=== PATIENT | male | born 1960 | race Caucasian/White ===

== ENCOUNTER 2017-04-26 13:04 | Emergency (ER) | payer BC ==
[~2017-04-26] VITALS: Ht 172.7 cm; Wt 104.5 kg
[~2017-04-26 13:04] MED LIST: AVELOX 400MG T400 MG PO; DIOVAN 80MG80 MG PO; DIOVAN320 MG PO; TOPROL XL100 MG PO; TOPROL XL200 MG PO; ZOCOR 40MG40 MG PO; ZOCOR5 MG PO; ZYLOPRIM 300MG300 MG PO
[2017-04-26 13:07] VITALS: TEMP 98.1
[2017-04-26 13:45] LABS: BASO # 0.1 (0.0-0.2); BASO % 0.9 % (0.0-2.0); EOS # 0.2 (0.0-0.7); EOS % 1.9 % (0-4.0); GRAN # 5.2 (1.4-6.5); GRAN % 51.2 % (42.2-75.2); MEAN CELL VOLUME 90 fl (80.0-100.0); MEAN CORPUSCULAR HGB CONC 35 g/dl (33.0-37.0); MEAN PLATELET VOLUME 9.3 fl (7.4-10.4); MONO # 0.5 (0.1-0.6); MONO % 5.4 % (1.7-9.3); PLATELET COUNT 240 K/mm3 (130-400); RED BLOOD COUNT 6.12 M/mm3 (4.20-5.60); REDCELL DISTRIBUTION WIDTH-CV 13.2 % (11.5-14.5)
[2017-04-26 13:47] LABS: ALANINE AMINOTRANSFERASE 65 U/L (21-72); ALKALINE PHOSPHATASE 91 U/L (50-136); ANION GAP 16 mmol/L (7-16); AST,SGOT 50 U/L (15-37); BILIRUBIN,TOTAL 1.2 mg/dL (0.0-1.0); BLOOD UREA NITROGEN 19 mg/dL (9-20); CALCIUM 9.7 mg/dL (8.4-10.2); CARBON DIOXIDE 27 mmol/L (22-30); CHLORIDE 98 mmol/L (98-107); CREATININE, serum 1.05 mg/dL (0.66-1.25); GLUCOSE 113 mg/dL (74-106); MAGNESIUM 1.8 mg/dL (1.6-2.3); POTASSIUM 4.2 mmol/L (3.4-5.0); SODIUM 141 mmol/L (137-145); TOTAL PROTEIN 8.9 gm/dL (6.4-8.2)
[2017-04-26 13:50] LABS: HEMATOCRIT 55.2 % (42.0-52.0); HEMOGLOBIN 19.2 g/dl (13.5-18.0); MEAN CORPUSCULAR HEMOGLOBIN 31 pg (27.0-31.0)
[2017-04-26] MEDS ORDERED: LIPITOR20 MG PO (13:53)
[2017-04-26] MEDS ORDERED: TOPROL XL100 MG PO (13:54)
[2017-04-26] MEDS ORDERED: DIOVAN 160MG160 MG PO (13:54)
[2017-04-26 14:09] LABS: TROPONIN-I < 0.012 ng/mL (0.000-0.034)
[2017-04-26] MEDS ORDERED: CARDIZEM CD 18180 MG PO (14:39)
[2017-04-26 14:40] VITALS: BP 125/87; PULSE 88
== END 2017-04-26 15:02 | disposition home or self-care (01) ==
LOC: COL.ER 13:04
PROVIDERS: Emergency Medicine
DX: I47.1 Supraventricular tachycardia (principal); I10 Essential (primary) hypertension; E78.5 Hyperlipidemia, unspecified; E66.9 Obesity, unspecified; Z68.34 Body mass index [BMI] 34.0-34.9, adult
CPT/HCPCS: J0153

== ENCOUNTER 2017-10-10 13:32 | Emergency (ER) | payer BC ==
[~2017-10-10] VITALS: Ht 172.7 cm; Wt 104.5 kg
[~2017-10-10 13:32] MED LIST changes: +CARDIZEM CD 18180 MG PO; +DIOVAN 160MG160 MG PO; +LIPITOR20 MG PO
[2017-10-10 13:39] VITALS: TEMP 98
[2017-10-10] MEDS ORDERED: BENICAR 20MG TA20 MG PO (13:57)
[2017-10-10 14:45] VITALS: BP 117/82; PULSE 82
== END 2017-10-10 15:00 | disposition home or self-care (01) ==
LOC: COL.ER 13:32
DX: I47.1 Supraventricular tachycardia (principal); I10 Essential (primary) hypertension; E78.5 Hyperlipidemia, unspecified
CPT/HCPCS: J0153; J7030

== ENCOUNTER → 2017-11-15 | Outpatient (CLI) | payer BC ==
[~2017-11-15] MED LIST changes: +BENICAR 20MG TA20 MG PO
== END ==
LOC: COL.PUL 12:04
DX: R09.02 Hypoxemia (principal)

== ENCOUNTER 2018-02-25 21:02 | Emergency (ER) | payer BC ==
[~2018-02-25] VITALS: Ht 172.7 cm; Wt 109.1 kg
[2018-02-25 21:26] LABS: BASO # 0.1 (0.0-0.2); BASO % 0.7 % (0.0-2.0); EOS # 0.2 (0.0-0.7); EOS % 1.9 % (0-4.0); GRAN # 5.1 (1.4-6.5); GRAN % 54.2 % (42.2-75.2); LYMPH # 3.6 (1.2-3.4); LYMPH % 37.6 % (20.0-51.0); MEAN CELL VOLUME 89 fl (80.0-100.0); MEAN CORPUSCULAR HGB CONC 35 g/dl (33.0-37.0); MEAN PLATELET VOLUME 9.8 fl (7.4-10.4); MONO # 0.5 (0.1-0.6); MONO % 5.3 % (1.7-9.3); PLATELET COUNT 208 K/mm3 (130-400); RED BLOOD COUNT 6.14 M/mm3 (4.20-5.60); REDCELL DISTRIBUTION WIDTH-CV 13.6 % (11.5-14.5)
[2018-02-25] MEDS ORDERED: [UNRECOGNIZED DRUG - REMARK] (21:28)
[2018-02-25 21:29] LABS: HEMATOCRIT 54.8 % (42.0-52.0); HEMOGLOBIN 19.1 g/dl (13.5-18.0); MEAN CORPUSCULAR HEMOGLOBIN 31 pg (27.0-31.0)
[2018-02-25 21:36] LABS: ALBUMIN 4.8 gm/dL (3.5-5.0); CALCIUM 9.9 mg/dL (8.4-10.2); CREATININE, serum 1.09 mg/dL (0.66-1.25); POTASSIUM 3.7 mmol/L (3.4-5.0); TOTAL PROTEIN 8.6 gm/dL (6.4-8.2)
[2018-02-25 22:29] VITALS: BP 127/73; PULSE 91
== END 2018-02-25 22:29 | disposition home or self-care (01) ==
LOC: COL.ER 21:02
PROVIDERS: Emergency Medicine
DX: I47.1 Supraventricular tachycardia (principal); I10 Essential (primary) hypertension; Z87.891 Personal history of nicotine dependence
CPT/HCPCS: J0153; J7030

== ENCOUNTER → 2018-10-04 | Outpatient (CLI) | payer BC ==
[~2018-10-04] MED LIST changes: +[UNRECOGNIZED DRUG - REMARK]
== END ==
LOC: COL.RAD 12:44
DX: N23 Unspecified renal colic (principal); R31.0 Gross hematuria; Z87.442 Personal history of urinary calculi

== ENCOUNTER 2020-04-05 20:17 | Emergency (ER) | payer OTHER ==
[~2020-04-05] VITALS: Ht 172.7 cm; Wt 109.1 kg
[2020-04-05 20:25] VITALS: TEMP 98.2
[2020-04-05 20:55] LABS: BASO # 0.1 (0.0-0.2); BASO % 0.7 % (0.0-2.0); EOS # 0.2 (0.0-0.7); EOS % 2.5 % (0-4.0); GRAN # 4.5 (1.4-6.5); GRAN % 48.6 % (42.2-75.2); LYMPH # 3.8 (1.2-3.4); LYMPH % 41.2 % (20.0-51.0); MEAN CELL VOLUME 87 fl (80.0-100.0); MEAN CORPUSCULAR HGB CONC 36 g/dl (33.0-37.0); MEAN PLATELET VOLUME 10.2 fl (7.4-10.4); MONO # 0.6 (0.1-0.6); MONO % 6.8 % (1.7-9.3); PLATELET COUNT 195 K/mm3 (130-400); RED BLOOD COUNT 6.19 M/mm3 (4.20-5.60)
[2020-04-05 21:01] LABS: HEMATOCRIT 54.1 % (42.0-52.0); HEMOGLOBIN 19.2 g/dl (13.5-18.0); MEAN CORPUSCULAR HEMOGLOBIN 31 pg (27.0-31.0)
[2020-04-05 21:09] LABS: CALCIUM 9.8 mg/dL (8.4-10.2); CREATININE, serum 1.13 (0.66-1.25); POTASSIUM 3.6 mmol/L (3.4-5.0)
[2020-04-05 22:00] VITALS: BP 128/65; PULSE 90
== END 2020-04-05 22:11 | disposition home or self-care (01) ==
LOC: COL.ER 20:17
PROVIDERS: Emergency Medicine
DX: I47.1 Supraventricular tachycardia (principal); I10 Essential (primary) hypertension; E78.5 Hyperlipidemia, unspecified
CPT/HCPCS: J0153; J7030